=== PATIENT | female | born 1960 | race Caucasian/White ===

== ENCOUNTER 2017-03-10 10:53 | Emergency (ER) | payer OTHER ==
[~2017-03-10] VITALS: Ht 154.9 cm; Wt 73.3 kg
[~2017-03-10 10:53] MED LIST: LEVEMIR SQ; ROBA750T3 PO; SYNT137T PO; ULTR50TA PO
[2017-03-10 10:55] VITALS: BP 142/64; PULSE 102; RESP 20; TEMP 98.3; O2SAT 97
[2017-03-10] MEDS ORDERED: METF500T PO (11:10)
[2017-03-10] MEDS ORDERED: DAPA1TAB3 PO (11:10)
[2017-03-10] MEDS ORDERED: TRAD5TAB PO (11:10)
[2017-03-10] MEDS ORDERED: SODIUM CHLORIDE 0.9% FLUSH 10 ML FLUSH IVF PRN (11:30)
[2017-03-10 11:43] VITALS: O2SAT 96
[2017-03-10 11:44] VITALS: BP 109/64; PULSE 96; RESP 20; O2SAT 95
[2017-03-10 11:49] LABS: AUTOMATED NEUTROPHIL # 6.8 TH/MM3 (1.8-7.7); BASOPHIL # 0.3 TH/MM3 (0-0.2); BASOPHIL % 2.8 % (0.0-2.0); EOSINOPHIL # 0.3 TH/MM3 (0-0.4); EOSINOPHIL % 2.8 % (0.0-4.0); HEMATOCRIT 45.2 % (35.0-46.0); HEMO FLAGS DIFF FINAL; LYMPH % 18.8 % (9.0-44.0); LYMPHOCYTE # 1.8 TH/MM3 (1.0-4.8); MEAN CORPUSCULAR HEMOGLOBIN 29.8 PG (27.0-34.0); MEAN CORPUSCULAR HGB CONC 32.8 % (32.0-36.0); MONO % 6.1 % (0.0-8.0); NEUT % 69.5 % (16.0-70.0); PLATELET COUNT 331 TH/MM3 (150-450); RED BLOOD COUNT 4.96 MIL/MM3 (4.00-5.30); RED CELL DISTRIBUTION WIDTH 13.4 % (11.6-17.2); WHITE BLOOD COUNT 9.8 TH/MM3 (4.0-11.0)
[2017-03-10 12:02] LABS: CHLORIDE 101 MEQ/L (98-107); SODIUM (NA) 137 MEQ/L (136-145)
[2017-03-10 12:06] LABS: ANION GAP 7 MEQ/L (5-15); BICARBONATE 29.5 MEQ/L (21.0-32.0); BLOOD UREA NITROGEN 11 MG/DL (7-18)
[2017-03-10 12:09] LABS: ALT (GPT) 21 U/L (10-53); AST (GOT) 11 U/L (15-37); GLOMERULAR FILTRATION RATE 69 ML/MIN (>89)
[2017-03-10 12:10] LABS: TOTAL BILIRUBIN ADULT 0.2 MG/DL (0.2-1.0)
[2017-03-10 12:11] LABS: ALKALINE PHOSPHATASE 108 U/L (45-117)
[2017-03-10 12:12] LABS: APTT (PATIENT) 30.4 SEC (24.3-30.1)
[2017-03-10 12:13] LABS: CREATINE KINASE 45 U/L (26-192)
--- NOTE | 2017-03-10 12:14 | RADRPT ---
EXAM DATE/TIME: 03/10/2017 11:50 [facility] COMPARISON: CHEST SINGLE AP, January 27, 2014, 9:29. INDICATIONS : Mid chest pain today MEDICAL HISTORY : Diabetes mellitus type II. SURGICAL HISTORY : None. ENCOUNTER: Initial ACUITY: 1 day PAIN SCORE: 7/10 LOCATION: Bilateral chest FINDINGS: The heart is normal in size. There mild chronic appearing interstitial changes the lungs are otherwis e clear. The bony structures are intact. The exam is stable compared to previous dated 01/27/14. CONCLUSION: No acute cardiopulmonary findings identified. Deon Ellis MD on March 10, 2017 at 12:12 Board Certified Radiologist. This report was verified electronically.
[2017-03-10] MEDS ORDERED: hydrOXYzine PAMOATE 25 MG CAP PO ONE (12:15)
[2017-03-10 12:35] VITALS: BP 117/62; PULSE 94; RESP 20; O2SAT 95
--- NOTE | 2017-03-10 12:54 | PD ---
HPI Chief Complaint: Anxiety Time Seen by Provider: 11:23 Travel History International Travel<30 days: No Contact w/Intl Traveler<30days: No Traveled to known affect area: No History of Present Illness HPI Patient is a 56 year old female who comes in because she felt "fluttering" in her chest. She says she thinks she is having an anxiety attack, but does say she's never had one before. She is worried, she got stung by a bee last night and she had to have an MRI for a breast mass . She denies any trouble breathing or chest pain. She has not had any swelling around the sting. She denies recent travel or any leg swelling. She did have two cups of coffee this morning prior to this occurring. PFSH Past Medical History Cancer: No Diabetes: Yes (TYPE 2) Patient Takes Glucophage: Yes Endocrine: Yes (HYPOTHYROIDISM) Glaucoma: No Hepatitis: No Hiatal Hernia: No Hypertension: No Medical other: Yes (REFLUX) Respiratory: Yes (ASTHMA) Thyroid Disease: No Past Surgical History Gynecologic Surgery: Yes (HYSTERECTOMY) Oral Surgery: Yes (JAW SX) Pacemaker: No Other Surgery: Yes Social History Alcohol Use: Yes (OCC) Tobacco Use: Yes (1 PPD) Substance Use: No Allergies-Medications (Allergen,Severity, Reaction): Coded Allergies: aspirin (Unverified Allergy, Severe, THROAT SWELLS, 03/10/17) amoxicillin (Unverified Allergy, Intermediate, RASH, 03/10/17) ibuprofen (Unverified Allergy, Unknown, Swelling, 03/10/17) PT STATES SHE WAS TOLD NOT TO TAKE MOTRIN D/T HER ALLERGY TO ASPIRIN Reported Meds & Prescriptions Reported Meds & Active Scripts Active Reported Tradjenta (Linagliptin) 5 Mg Tab 5 Mg PO DAILY Farxiga (Dapagliflozin) 10 Mg Tab 10 Mg PO DAILY Metformin (Metformin HCl) 500 Mg Tab 500 Mg PO BIDPC Review of Systems Except as stated in HPI: all other systems reviewed are Neg General / Constitutional: No: Fever, Chills Eyes: No: Blurred Vision HENT: No: Headaches, Lightheadedness Cardiovascular: Positive: Palpitations, No: Chest Pain or Discomfort Respiratory: No: Shortness of Breath Gastrointestinal: No: Nausea, Vomiting Musculoskeletal: No: Myalgias, Edema Skin: No Rash, No Change in Pigmentation Neurologic: No: Weakness, Dizziness Physical Exam Narrative GENERAL: Awake and alert, in no acute distress. SKIN: Focused skin assessment warm/dry. HEAD: Atraumatic. Normocephalic. EYES: Pupils equal and round. No scleral icterus. ENT: Mucous membranes pink and moist. NECK: Trachea midline. No JVD. CARDIOVASCULAR: Regular rate and rhythm. No murmur appreciated. RESPIRATORY: No accessory muscle use. Clear to auscultation. Breath sounds equal bilaterally. GASTROINTESTINAL: Abdomen soft, non-tender, nondistended. MUSCULOSKELETAL: No obvious deformities. No clubbing. No cyanosis. No edema. NEUROLOGICAL: Awake and alert. No obvious cranial nerve deficits. Motor grossly within normal limits. Normal speech. PSYCHIATRIC: Appropriate mood and affect; insight and judgment normal. Data Data Last Documented VS Vital Signs Date Time Temp Pulse Resp B/P (MAP) Pulse Ox O2 Delivery O2 Flow Rate FiO2 03/10/17 12:35 94 20 117/62 (80) 95 03/10/17 10:55 98.3 Orders Orders Electrocardiogram (03/10/17 11:30) Ckmb (Isoenzyme) Profile (03/10/17 11:30) Complete Blood Count With Diff (03/10/17 11:30) Comprehensive Metabolic Panel (03/10/17 11:30) D-Dimer (03/10/17 11:30) Prothrombin Time / Inr (Pt) (03/10/17 11:30) Act Partial Throm Time (Ptt) (03/10/17 11:30) Troponin I (03/10/17 11:30) Chest, Single Ap (03/10/17 11:30) Ecg Monitoring (03/10/17 11:30) Iv Access Insert/Monitor (03/10/17 11:30) Oximetry (03/10/17 11:30) Sodium Chloride 0.9% Flush (Ns Flush) (03/10/17 11:30) Hydroxyzine Pamoate (Vistaril) (03/10/17 12:15) Labs Laboratory Tests Test 03/10/17 11:40 White Blood Count 9.8 TH/MM3 Red Blood Count 4.96 MIL/MM3 Hemoglobin 14.8 GM/DL Hematocrit 45.2 % Mean Corpuscular Volume 91.0 FL Mean Corpuscular Hemoglobin 29.8 PG Mean Corpuscular Hemoglobin Concent 32.8 % Red Cell Distribution Width 13.4 % Platelet Count 331 TH/MM3 Mean Platelet Volume 8.2 FL Neutrophils (%) (Auto) 69.5 % Lymphocytes (%) (Auto) 18.8 % Monocytes (%) (Auto) 6.1 % Eosinophils (%) (Auto) 2.8 % Basophils (%) (Auto) 2.8 % Neutrophils # (Auto) 6.8 TH/MM3 Lymphocytes # (Auto) 1.8 TH/MM3 Monocytes # (Auto) 0.6 TH/MM3 Eosinophils # (Auto) 0.3 TH/MM3 Basophils # (Auto) 0.3 TH/MM3 CBC Comment DIFF FINAL Differential Comment Prothrombin Time 11.0 SEC Prothromb Time International Ratio 1.0 RATIO Activated Partial Thromboplast Time 30.4 SEC D-Dimer Quantitative (PE/DVT) 0.39 MG/L FEU Blood Urea Nitrogen 11 MG/DL Creatinine 0.85 MG/DL Random Glucose 203 MG/DL Total Protein 7.5 GM/DL Albumin 3.6 GM/DL Calcium Level 8.7 MG/DL Alkaline Phosphatase 108 U/L Aspartate Amino Transf (AST/SGOT) 11 U/L Alanine Aminotransferase (ALT/SGPT) 21 U/L Total Bilirubin 0.2 MG/DL Sodium Level 137 MEQ/L Potassium Level 4.0 MEQ/L Chloride Level 101 MEQ/L Carbon Dioxide Level 29.5 MEQ/L Anion Gap 7 MEQ/L Estimat Glomerular Filtration Rate 69 ML/MIN Total Creatine Kinase 45 U/L Troponin I LESS THAN 0.02 NG/ML MDM Medical Decision Making Medical Screen Exam Complete: Yes Emergency Medical Condition: Yes Medical Record Reviewed: Yes Interpretation(s) ECG shows NSR with frequent PVCs. No signs of ischemia. Differential Diagnosis Anxiety vs electrolyte abnormalities vs ACS vs PE Narrative Course Patient is a 56-year-old female who comes in complaining of "fluttering" in her chest. Exam shows no acute abnormalities. IV established, labs sent. Labs including troponin and d-dimer are all within normal limits. ECG shows no evidence of ischemia or arrhythmia, however she does have frequent PVCs. Given a dose of Vistaril. She reports feeling better. Advised to avoid caffeine. Advised follow-up with her doctor. Advised to return to the ED as needed for any worsening symptoms. She is comfortable discharge at this time. Diagnosis Primary Impression: Palpitations Patient Instructions: General Instructions, Heart Palpitations (ED) Additional Instructions: Cut back on her caffeine intake. Drink plenty of fluids. Follow-up with her doctor. Return to the ED as needed for any worsening symptoms. Disposition: 01 DISCHARGE HOME Condition: Stable Katelyn Copeland MD Mar 10, 2017 12:54
--- NOTE | 2017-03-10 14:16 | EKG ---
Date Performed: 03/10/2017 Time Performed: 11:45:27 PTAGE: 56 years EKG: Sinus rhythm WITH FREQUENT SUPRAVENTRICULAR PREMATURE COMPLEXES ABNORMAL RHYTHM ECG PREVIOUS TRACING : 01/27/2014 09.20 DOCTOR: Carlos Judge Interpretating Date/Time 03/10/2017 14:13:47
== END 2017-03-10 13:21 | disposition home or self-care (01) ==
LOC: PHED 10:53
DX: R00.2 Palpitations (principal); R94.31 Abnormal electrocardiogram [ECG] [EKG]; E11.9 Type 2 diabetes mellitus without complications; F17.210 Nicotine dependence, cigarettes, uncomplicated; Z79.84 Long term (current) use of oral hypoglycemic drugs
CPT/HCPCS: 71010; 80053; 82550; 84484; 85025; 85379; 85610; 85730; 93005; 99285; Q0177